=== PATIENT | female | born 1985 | race Caucasian/White ===

== ENCOUNTER → 2016-11-12 | Outpatient (CLI) | payer BC | LOC: LAB 13:09 | DX: Z00.00 Encounter for general adult medical examination without abnormal findings (principal); M85.80 Other specified disorders of bone density and structure, unspecified site ==

== ENCOUNTER → 2017-05-28 | Outpatient (CLI) | payer BC ==
[~2017-05-28] VITALS: Ht 165.1 cm; Wt 50.0 kg
[2017-05-28 13:00] VITALS: BP 100/64
[2017-05-28 14:24] LABS: HEMATOCRIT 36.3 % (37.0-47.0); HEMOGLOBIN 12.3 g/dL (12.5-16.0); MEAN CELL VOLUME 84 fl (78-100); MEAN CORPUSCULAR HEMOGLOBIN 29 pg (27-31); MEAN CORPUSCULAR HGB CONC 34 g/dL (33-37); MEAN PLATELET VOLUME 11.9 fl (7.4-10.4); MONO # 0.4 (0.20-0.80); NEU # 2.9 (1.40-6.50); PLATELET COUNT 191 K/mm3 (130-400); RED BLOOD COUNT 4.31 M/mm3 (4.10-5.30); RED CELL DISTRIBUTION WIDTH 12.1 % (11.5-14.5); WHITE BLOOD COUNT 4.3 K/mm3 (4.8-10.8)
[2017-05-28 14:29] LABS: ALBUMIN 4.3 g/dL (3.5-5.0); BUN/CREATININE RATIO 14.3 (6.0-26.0); CALCIUM 10.2 mg/dL (8.4-10.2); POTASSIUM 3.5 mmol/L (3.6-5.0); TOTAL BILIRUBIN 0.5 mg/dL (0.2-1.3); TOTAL PROTEIN 8.6 g/dL (6.3-8.2)
[2017-05-28 14:58] VITALS: BP 119/70
[2017-05-28 16:41] LABS: ERYTHROCYTE SEDIMENTATION RATE 33 mm/hr (0-20)
[2017-05-28 19:33] LABS: URINE APPEARANCE CLEAR; URINE BILIRUBIN NEGATIVE (NEGATIVE); URINE COLOR YELLOW; URINE GLUCOSE NEGATIVE (NEGATIVE); URINE KETONE 1+ (NEGATIVE); URINE PROTEIN(semi-quant) NEGATIVE (NEGATIVE)
[2017-05-28 19:34] LABS: URINE BLOOD NEGATIVE (NEGATIVE); URINE LEUKOCYTE ESTERASE NEGATIVE (NEGATIVE); URINE NITRATE NEGATIVE (NEGATIVE); URINE UROBILINOGEN NORMAL (NORMAL); URINE WBC 0-1 /hpf (0-3)
[2017-05-28 19:35] LABS: URINE MUCUS PRESENT (NOT PRESENT)
== END ==
LOC: AMSURD 12:51
PROVIDERS: Internal Medicine
DX: R10.13 Epigastric pain (principal); K92.0 Hematemesis; K22.4 Dyskinesia of esophagus
CPT/HCPCS: J2270; J2550; J7120

== ENCOUNTER → 2017-08-26 | Outpatient (CLI) | payer BC ==
[2017-05-28 14:58] VITALS: BP 119/70
[~2017-08-26] MED LIST: AMBIEN5 M1 PO; BACLOFEN20 MG PO; MORPHINE S100 MG/5 M PO; PRIALT IOSSC; PROMETHAZINE12.5 M5 PO; ZOFRAN ODT4 MG PO
[2017-08-26 11:14] LABS: EOS % 0.7 % (1.0-5.0); HEMATOCRIT 38.3 % (37.0-47.0); HEMOGLOBIN 12.6 g/dL (12.5-16.0); LYMPH# 1.4 (1.50-4.00); MEAN CELL VOLUME 85 fl (78-100); MEAN CORPUSCULAR HEMOGLOBIN 28 pg (27-31); MEAN CORPUSCULAR HGB CONC 33 g/dL (33-37); MONO # 0.5 (0.20-0.80); NEU # 2.6 (1.40-6.50); PLATELET COUNT 170 K/mm3 (130-400); RED CELL DISTRIBUTION WIDTH 12.9 % (11.5-14.5); WHITE BLOOD COUNT 4.5 K/mm3 (4.8-10.8)
[2017-08-26 11:39] LABS: MEAN PLATELET VOLUME 12.3 fl (7.4-10.4)
[2017-08-26 11:45] LABS: ALBUMIN 4.2 g/dL (3.5-5.0); BUN/CREATININE RATIO 14.7 (6.0-26.0); CALCIUM 9.4 mg/dL (8.4-10.2); POTASSIUM 3.3 mmol/L (3.6-5.0); TOTAL BILIRUBIN 0.7 mg/dL (0.2-1.3); TOTAL PROTEIN 8.1 g/dL (6.3-8.2)
[2017-08-26 11:52] LABS: URINE APPEARANCE HAZY; URINE BILIRUBIN NEGATIVE (NEGATIVE); URINE BLOOD TRACE (NEGATIVE); URINE COLOR YELLOW; URINE GLUCOSE NEGATIVE (NEGATIVE); URINE KETONE 2+ (NEGATIVE); URINE LEUKOCYTE ESTERASE NEGATIVE (NEGATIVE); URINE NITRATE NEGATIVE (NEGATIVE); URINE PROTEIN(semi-quant) 1+ mg/dL (NEGATIVE); URINE UROBILINOGEN NORMAL (NORMAL)
[2017-08-26 11:53] LABS: URINE MUCUS PRESENT (NOT PRESENT)
[2017-08-26 13:57] LABS: D-DIMER 0.5 mg/L FEU (0.15-0.50)
== END ==
LOC: RAD 10:42
PROVIDERS: Internal Medicine
DX: R06.02 Shortness of breath (principal); R50.9 Fever, unspecified; D61.818 Other pancytopenia; R61 Generalized hyperhidrosis; Z90.89 Acquired absence of other organs; Z98.890 Other specified postprocedural states; Z96.89 Presence of other specified functional implants

== ENCOUNTER 2017-08-27 09:49 | Emergency (ER) | payer BC ==
[2017-08-27 10:40] LABS: EOS % 0.8 % (1.0-5.0); HEMATOCRIT 38.2 % (37.0-47.0); HEMOGLOBIN 12.7 g/dL (12.5-16.0); LYMPH# 1.4 (1.50-4.00); MEAN CELL VOLUME 86 fl (78-100); MEAN CORPUSCULAR HEMOGLOBIN 29 pg (27-31); MEAN CORPUSCULAR HGB CONC 33 g/dL (33-37); MONO # 0.3 (0.20-0.80); PLATELET COUNT 166 K/mm3 (130-400); RED BLOOD COUNT 4.45 M/mm3 (4.10-5.30); WHITE BLOOD COUNT 3.7 K/mm3 (4.8-10.8)
[2017-08-27 10:44] LABS: MEAN PLATELET VOLUME 12.1 fl (7.4-10.4)
[2017-08-27] MEDS ORDERED: AMBIEN5 M1 PO (10:44)
[2017-08-27] MEDS ORDERED: PRIALT IOSSC (10:45)
[2017-08-27] MEDS ORDERED: ZOFRAN ODT4 MG PO (10:46)
[2017-08-27] MEDS ORDERED: BACLOFEN20 MG PO (10:47)
[2017-08-27] MEDS ORDERED: MORPHINE S100 MG/5 M PO (10:48)
[2017-08-27] MEDS ORDERED: PROMETHAZINE12.5 M5 PO (10:48)
[2017-08-27 10:50] LABS: D-DIMER 0.41 mg/L FEU (0.15-0.50)
[2017-08-27 10:51] LABS: ALBUMIN 4.3 g/dL (3.5-5.0); BUN/CREATININE RATIO 11.7 (6.0-26.0); CALCIUM 9.4 mg/dL (8.4-10.2); POTASSIUM 3.6 mmol/L (3.6-5.0); TOTAL BILIRUBIN 0.7 mg/dL (0.2-1.3); TOTAL PROTEIN 8.3 g/dL (6.3-8.2)
[2017-08-27 12:26] VITALS: BP 116/80
== END 2017-08-27 12:31 | disposition home or self-care (01) ==
LOC: ED 09:49
PROVIDERS: Physician Assistant
DX: B34.9 Viral infection, unspecified (principal); R06.00 Dyspnea, unspecified; R07.9 Chest pain, unspecified; G90.50 Complex regional pain syndrome I, unspecified; Z79.899 Other long term (current) drug therapy
CPT/HCPCS: Q9967

== ENCOUNTER → 2019-02-03 | Outpatient (CLI) | payer BC ==
[2019-02-03 11:00] LABS: EOS % 0.4 % (1.0-5.0); MEAN CELL VOLUME 89 fl (78-100); MEAN CORPUSCULAR HEMOGLOBIN 29 pg (27-31); MEAN CORPUSCULAR HGB CONC 33 g/dL (33-37); MONO # 0.5 (0.20-0.80); NEU # 3.8 (1.40-6.50); PLATELET COUNT 175 K/mm3 (130-400); RED BLOOD COUNT 4.49 M/mm3 (4.10-5.30); RED CELL DISTRIBUTION WIDTH 12.7 % (11.5-14.5); WHITE BLOOD COUNT 5.4 K/mm3 (4.8-10.8)
[2019-02-03 11:21] LABS: MEAN PLATELET VOLUME 12.5 fl (7.4-10.4)
[2019-02-03 11:25] LABS: ALBUMIN 4.3 g/dL (3.5-5.0); POTASSIUM 3.8 mmol/L (3.5-5.1); SODIUM 139 mmol/L (136-145)
[2019-02-03 11:26] LABS: CALCIUM 10.2 mg/dL (8.3-10.5)
[2019-02-03 11:27] LABS: GLUCOSE 100 mg/dL (65-105)
[2019-02-03 11:28] LABS: TOTAL PROTEIN 7.5 g/dL (6.4-8.3)
[2019-02-03 11:29] LABS: CARBON DIOXIDE 26 mmol/L (22-29); TOTAL BILIRUBIN 0.6 mg/dL (0.2-1.2)
[2019-02-03 11:33] LABS: AST-SGOT 16 U/L (5-34)
[2019-02-03 11:34] LABS: ALT/SGPT 16 U/L (0-55)
[2019-02-03 12:16] LABS: ERYTHROCYTE SEDIMENTATION RATE 12 mm/hr (0-20)
[2019-02-06 14:24] LABS: ANA SCREEN with REFLEX Negative (Negative)
== END ==
LOC: LAB 10:45
PROVIDERS: Internal Medicine
DX: M65.9 Synovitis and tenosynovitis, unspecified (principal); G89.4 Chronic pain syndrome; M79.641 Pain in right hand

== ENCOUNTER → 2019-02-13 | Outpatient (CLI) | payer BC ==
[2019-02-13 10:37] LABS: URINE APPEARANCE CLEAR; URINE BILIRUBIN NEGATIVE (NEGATIVE); URINE BLOOD NEGATIVE (NEGATIVE); URINE COLOR YELLOW; URINE GLUCOSE NEGATIVE (NEGATIVE); URINE KETONE NEGATIVE (NEGATIVE); URINE LEUKOCYTE ESTERASE NEGATIVE (NEGATIVE); URINE NITRATE NEGATIVE (NEGATIVE); URINE PROTEIN(semi-quant) TRACE mg/dL (NEGATIVE); URINE UROBILINOGEN NORMAL (NORMAL); URINE WBC 0-1 /hpf (0-3)
== END ==
LOC: LAB 10:01 → RAD 10:45
PROVIDERS: Internal Medicine
DX: N23 Unspecified renal colic (principal)

== ENCOUNTER → 2019-04-05 | Outpatient (CLI) | payer BC | LOC: RAD 15:43 | DX: M79.89 Other specified soft tissue disorders (principal) ==

== ENCOUNTER → 2019-09-19 | Outpatient (CLI) | payer BC ==
[~2019-09-19] MED LIST changes: +PHENERGAN 25 TA25 MG PO; +SPIRONOLACTONE50 M1 PO
== END ==
LOC: LAB 10:35
DX: J02.9 Acute pharyngitis, unspecified (principal); R06.02 Shortness of breath; R43.0 Anosmia

== ENCOUNTER 2019-09-21 16:21 | Emergency (ER) | payer BC ==
[~2019-09-21] VITALS: Ht 162.6 cm; Wt 63.6 kg
[~2019-09-21 16:21] MED LIST changes: -PHENERGAN 25 TA25 MG PO; -SPIRONOLACTONE50 M1 PO
[2019-09-21] MEDS ORDERED: SPIRONOLACTONE50 M1 PO (16:40)
[2019-09-21] MEDS ORDERED: PHENERGAN 25 TA25 MG PO (16:40)
[2019-09-21 18:11] VITALS: BP 99/70
== END 2019-09-21 18:08 | disposition home or self-care (01) ==
LOC: ED 16:21
DX: J20.9 Acute bronchitis, unspecified (principal); J01.90 Acute sinusitis, unspecified; G89.29 Other chronic pain; Z20.828 Contact with and (suspected) exposure to other viral communicable diseases; Z98.890 Other specified postprocedural states

== ENCOUNTER → 2019-12-19 | Outpatient (CLI) | payer BC ==
[~2019-12-19] MED LIST changes: +PHENERGAN 25 TA25 MG PO; +SPIRONOLACTONE50 M1 PO
== END ==
LOC: RAD 15:11
DX: S82.201A Unspecified fracture of shaft of right tibia, initial encounter for closed fracture (principal); M85.861 Other specified disorders of bone density and structure, right lower leg; M25.551 Pain in right hip; G90.50 Complex regional pain syndrome I, unspecified

== ENCOUNTER 2020-01-04 10:45 | Observation (INO) | payer BC ==
[~2020-01-04] VITALS: Ht 165.1 cm; Wt 54.4 kg
[2020-01-04 11:26] LABS: HEMATOCRIT 40.7 % (37.0-47.0); HEMOGLOBIN 13.4 g/dL (12.5-16.0); MEAN CELL VOLUME 89 fl (78-100); MEAN CORPUSCULAR HEMOGLOBIN 29 pg (27-31); MEAN CORPUSCULAR HGB CONC 33 g/dL (33-37); PLATELET COUNT 104 K/mm3 (130-400); RED BLOOD COUNT 4.58 M/mm3 (4.10-5.30); RED CELL DISTRIBUTION WIDTH 12.6 % (11.5-14.5); WHITE BLOOD COUNT 2.8 K/mm3 (4.8-10.8)
[2020-01-04] MEDS ORDERED: OMEPRAZOLE40 MG PO (11:27)
[2020-01-04] MEDS ORDERED: VITAMIN D310 MC3 PO (11:27)
[2020-01-04 11:29] LABS: ALBUMIN 4.2 g/dL (3.5-5.0); POTASSIUM 3.6 mmol/L (3.5-5.1)
[2020-01-04 11:32] LABS: TOTAL PROTEIN 7.8 g/dL (6.4-8.3)
[2020-01-04 11:33] LABS: MEAN PLATELET VOLUME 12.4 fl (7.4-10.4)
[2020-01-04 11:34] LABS: TOTAL BILIRUBIN 0.6 mg/dL (0.2-1.2)
[2020-01-04 11:47] LABS: BAND 4 % (0-10); LYMPHOCYTE 25 % (20-51); MONOCYTE 14 % (3-10); NEUTROPHILS 57 % (42-75)
[2020-01-04 12:40] LABS: URINE APPEARANCE CLEAR; URINE COLOR ORANGE; URINE WBC 0-1 /hpf (0-3)
[2020-01-04 15:53] VITALS: BP 91/66
[2020-01-04 17:25] VITALS: BP 9/54; BP 90/54
[2020-01-04 19:18] VITALS: BP 87/53
[2020-01-04 19:55] VITALS: BP 76/41
[2020-01-04 20:05] VITALS: BP 90/60
[2020-01-04 22:08] VITALS: BP 96/56
[2020-01-05] VITALS (7 sets, daily range): BP systolic 84–106; BP diastolic 48–62
[2020-01-05 08:41] LABS: HEMATOCRIT 32.7 % (37.0-47.0); HEMOGLOBIN 10.6 g/dL (12.5-16.0); MEAN CELL VOLUME 90 fl (78-100); MEAN CORPUSCULAR HEMOGLOBIN 29 pg (27-31); MEAN CORPUSCULAR HGB CONC 32 g/dL (33-37); PLATELET COUNT 87 K/mm3 (130-400); RED BLOOD COUNT 3.64 M/mm3 (4.10-5.30); RED CELL DISTRIBUTION WIDTH 12.6 % (11.5-14.5); WHITE BLOOD COUNT 2.3 K/mm3 (4.8-10.8)
[2020-01-05 08:57] LABS: POTASSIUM 3.4 mmol/L (3.5-5.1)
[2020-01-05 08:58] LABS: ALBUMIN 3.1 g/dL (3.5-5.0); CALCIUM 7.8 mg/dL (8.3-10.5)
[2020-01-05 09:00] LABS: TOTAL PROTEIN 5.6 g/dL (6.4-8.3)
[2020-01-05 09:02] LABS: MEAN PLATELET VOLUME 12.2 fl (7.4-10.4)
[2020-01-05 09:02] LABS: TOTAL BILIRUBIN 0.4 mg/dL (0.2-1.2)
[2020-01-05 09:14] LABS: BAND 1 % (0-10); LYMPHOCYTE 42 % (20-51); MONOCYTE 11 % (3-10); NEUTROPHILS 46 % (42-75)
[2020-01-06] VITALS (7 sets, daily range): BP systolic 84–109; BP diastolic 50–61
[2020-01-06 07:52] LABS: POTASSIUM 3.7 mmol/L (3.5-5.1)
[2020-01-06 07:53] LABS: CALCIUM 8.1 mg/dL (8.3-10.5); HEMATOCRIT 37.7 % (37.0-47.0); HEMOGLOBIN 12.2 g/dL (12.5-16.0); MEAN CELL VOLUME 94 fl (78-100); MEAN CORPUSCULAR HEMOGLOBIN 30 pg (27-31); MEAN CORPUSCULAR HGB CONC 32 g/dL (33-37); PLATELET COUNT 76 K/mm3 (130-400); RED BLOOD COUNT 4.03 M/mm3 (4.10-5.30); RED CELL DISTRIBUTION WIDTH 13.6 % (11.5-14.5); WHITE BLOOD COUNT 2.2 K/mm3 (4.8-10.8)
[2020-01-06 07:57] LABS: MEAN PLATELET VOLUME 13.3 fl (7.4-10.4)
[2020-01-06 07:59] LABS: BAND 3 % (0-10)
[2020-01-06 08:00] LABS: LYMPHOCYTE 41 % (20-51); MONOCYTE 14 % (3-10); NEUTROPHILS 42 % (42-75)
[2020-01-07 06:16] VITALS: BP 95/54
[2020-01-07 09:59] VITALS: BP 104/64
[2020-01-07 14:05] VITALS: BP 110/58
[2020-01-07] MEDS ORDERED: CARAFATE S1 GM/10 ML PO (15:36)
[2020-01-10] MEDS ORDERED: MACROBID 100 M100 MG PO (16:14)
== END 2020-01-07 16:10 | disposition home or self-care (01) ==
LOC: ED 10:45 → MED/SURG 15:34 → ED 15:41 → MED/SURG 01-07 16:10
PROVIDERS: Internal Medicine; Physician Assistant; ADMIT Nurse Practitioner Family
DX: U07.1 COVID-19 (principal); K52.9 Noninfective gastroenteritis and colitis, unspecified; E86.0 Dehydration; J18.1 Lobar pneumonia, unspecified organism; G90.50 Complex regional pain syndrome I, unspecified; K90.9 Intestinal malabsorption, unspecified; Z90.49 Acquired absence of other specified parts of digestive tract; D61.818 Other pancytopenia; K21.9 Gastro-esophageal reflux disease without esophagitis
CPT/HCPCS: C9113; G0378; J0456; J0696; J1170; J1885; J2270; J2405; J2550; J7030; J7050; Q9967

== ENCOUNTER → 2020-04-11 | Outpatient (CLI) | payer BC ==
[2020-01-10 16:29] VITALS: BP 125/79
[~2020-04-11] MED LIST changes: +CARAFATE S1 GM/10 ML PO; +MACROBID 100 M100 MG PO; +OMEPRAZOLE40 MG PO; +VITAMIN D310 MC3 PO
== END ==
LOC: RAD 16:10
DX: S89 Other and unspecified injuries of lower leg (principal); S82.15 Fracture of tibial tuberosity

== ENCOUNTER → 2021-01-14 | Outpatient (CLI) | payer BC ==
[2021-01-14 17:22] LABS: BASO # 0.01 K/mm3 (0.02-0.10); EOS # 0.02 K/mm3 (0.04-0.40); EOS % 0.4 % (1.0-5.0); HEMATOCRIT 40.6 % (37.0-47.0); HEMOGLOBIN 13.3 g/dL (12.5-16.0); LYMPH# 1.26 K/mm3 (1.50-4.00); MEAN CELL VOLUME 93 fl (78-100); MEAN CORPUSCULAR HEMOGLOBIN 30 pg (27-31); MEAN CORPUSCULAR HGB CONC 33 g/dL (33-37); MEAN PLATELET VOLUME 11.3 fl (7.4-10.4); MONO # 0.48 K/mm3 (0.20-0.80); NEU # 3.53 K/mm3 (1.40-6.50); PLATELET COUNT 177 K/mm3 (130-400); RED BLOOD COUNT 4.39 M/mm3 (4.10-5.30); RED CELL DISTRIBUTION WIDTH 11.8 % (11.5-14.5); WHITE BLOOD COUNT 5.3 K/mm3 (4.8-10.8)
[2021-01-14 17:45] LABS: ALBUMIN 3.8 g/dL (3.5-5.0)
[2021-01-14 17:47] LABS: CALCIUM 9.5 mg/dL (8.3-10.5)
[2021-01-14 17:48] LABS: TOTAL PROTEIN 7.1 g/dL (6.4-8.3)
[2021-01-14 17:50] LABS: TOTAL BILIRUBIN 0.8 mg/dL (0.2-1.2)
[2021-01-14 17:55] LABS: MAGNESIUM 2.12 mg/dL (1.60-2.60)
[2021-01-21 15:51] LABS: VITAMIN A 53.2 mcg/dL (())
== END ==
LOC: LAB 17:06
PROVIDERS: Internal Medicine
DX: K85.90 Acute pancreatitis without necrosis or infection, unspecified (principal); K90.9 Intestinal malabsorption, unspecified

== ENCOUNTER → 2022-11-20 | Outpatient (CLI) | payer BC | LOC: RAD 10:34 | DX: K83.8 Other specified diseases of biliary tract (principal); R10.30 Lower abdominal pain, unspecified | CPT/HCPCS: Q9967 ==

== ENCOUNTER → 2024-01-07 | Outpatient (CLI) | payer BC ==
[2024-01-07 10:23] LABS: BASO # 0.02 K/mm3 (0.02-0.10); EOS # 0.02 K/mm3 (0.04-0.40); EOS % 0.3 % (1.0-5.0); HEMATOCRIT 40.1 % (37.0-47.0); HEMOGLOBIN 13.3 g/dL (12.5-16.0); LYMPH# 2.01 K/mm3 (1.50-4.00); MEAN CELL VOLUME 92 fl (78-100); MEAN CORPUSCULAR HEMOGLOBIN 30 pg (27-31); MEAN CORPUSCULAR HGB CONC 33 g/dL (33-37); MEAN PLATELET VOLUME 11.2 fl (7.4-10.4); MONO # 0.45 K/mm3 (0.20-0.80); NEU # 3.84 K/mm3 (1.40-6.50); PLATELET COUNT 163 K/mm3 (130-400); RED BLOOD COUNT 4.37 M/mm3 (4.10-5.30); RED CELL DISTRIBUTION WIDTH 12.5 % (11.5-14.5); WHITE BLOOD COUNT 6.4 K/mm3 (4.8-10.8)
[2024-01-07 10:29] LABS: ALBUMIN 4.1 g/dL (3.5-5.0)
[2024-01-07 10:30] LABS: CALCIUM 9.2 mg/dL (8.3-10.5)
[2024-01-07 10:31] LABS: TOTAL PROTEIN 6.9 g/dL (6.4-8.3)
[2024-01-07 10:33] LABS: TOTAL BILIRUBIN 0.5 mg/dL (0.2-1.2)
[2024-01-07 10:39] LABS: MAGNESIUM 2.12 mg/dL (1.60-2.60)
== END ==
LOC: LAB 10:01
PROVIDERS: Internal Medicine
DX: Z00.00 Encounter for general adult medical examination without abnormal findings (principal)